=== PATIENT | female | born 1990 | race Caucasian/White ===

== ENCOUNTER 2018-03-22 23:27 | Inpatient (IN) | payer OTHER, SELFPAY ==
[2018-03-23] MEDS: Lactated Ringers 1,000 ML 50 ML IV ×4 (00:03→15:14)
[2018-03-23 00:04] VITALS: BMI 35.9
[2018-03-23 00:29] LABS: Hemoglobin 13.5 g/dl (12.0-15.0); Mean Corp Hgb Conc 35.5 g/gl (32-36); Mean Corpuscular Volume 84.4 fL (81-99); Platelet Count 214 K/mm3 (150-450); RBC Distribution Width CV 13.1 % (11.6-14.6); RBC Distribution Width SD 40.1 fl (35.1-43.9)
[2018-03-23] MEDS: Oxytocin 30 units/NS 500 ml 30 UNITS/500 ML IV.SOLN IV (00:39)
[2018-03-23 00:57] LABS: Scan Indicated on CBC? Y/N NO
[2018-03-23] MEDS: Ondansetron 4 MG/2 ML Vial IV ×2 (04:54→17:13)
[2018-03-23] MEDS: Nalbuphine 10 MG/ML Ampul IV ×2 (05:09→08:11)
[2018-03-23] MEDS: 0.9% Saline Lock 10 ML Syringe IV (06:59)
--- NOTE | 2018-03-23 08:13 | PCM.HP.OB ---
History Date of Admission: 03/23/18 Final JENNIE: 03/22/18 Final JENNIE Source: LMP Gestational age: 40 Weeks and 1 Days History of this : This is a 27 year-old, , at 40.1 weeks gestational age with complaints of SROM at home- not in active labor. pt reports occasional contractions, clear fluid. this was conceived with IUI- no complications during this . Medical History: Medical History (Last Updated 03/23/18 @ 08:15 by Hortensia Hays MD) Hypothyroid E03.9 Allergies Sulfa (Sulfonamide Antibiotics) Allergy (Verified 03/23/18 00:08) Unknown Smoking Status: Never smoker Alcohol: None Number of Fetus(es): 1 Heart Tracin mod juan, +accels, no decelerations at current time- had occasional variable - TOCO Analysis: q2-4min History Past Pregnancies: Past Pregnancies Delivery Date Name GA/Weeks Outcome Route Weight Infant Gender Labor Length Anesthesia Delivery Location Provider FOB Labs: A+, HIV neg, RUb imm, Syphilis neg, HEPB neg, GBS neg Expected Infant Delivery Method: Spontaneous Vaginal Review of Systems Cardiovascular: Denies: Chest Pain Respiratory: Denies: Cough Physical Exam General: Alert, Oriented x3 Abdomen: Soft, Non Tender, Gravid Extremities:: No clubbing, No tenderness/swelling Neurological: Cranial nerves II-XII grossly intact FITTER TYPE BAR AND SEGMENT: Normal external genitalia Estimated gestational size: Appropriate for gestational size Presentation: Cephalic Cervix Dilation (cm): 2.5 Station: -3 Effacement (%): 70 Assessment/Plan This is a 27 year-old, G 1P0 at 40.1 weeks gestational age with SROM at home- not in labor 1) induction with pitocin 2) may have Epidural for pain if requested 3) IUPC placed 4) Monitor VS, TOCO/FHR 5) anticipate
--- NOTE | 2018-03-23 08:18 | HP.PCM_ITS ---
History Date of Admission: 03/23/18 Final JENNIE: 03/22/18 Final JENNIE Source: LMP Gestational age: 40 Weeks and 1 Days History of this : This is a 27 year-old, , at 40.1 weeks gestational age with complaints of SROM at home- not in active labor. pt reports occasional contractions, clear fluid. this was conceived with IUI- no complications during this . Medical History: Medical History (Last Updated 03/23/18 @ 08:15 by Hortensia Hays MD) Hypothyroid E03.9 Allergies Sulfa (Sulfonamide Antibiotics) Allergy (Verified 03/23/18 00:08) Unknown Smoking Status: Never smoker Alcohol: None Number of Fetus(es): 1 Heart Tracin mod juan, +accels, no decelerations at current time- had occasional variable - TOCO Analysis: q2-4min History Past Pregnancies: Past Pregnancies Delivery Date Name GA/Weeks Outcome Route Weight Infant Gender Labor Length Anesthesia Delivery Location Provider FOB Labs: A+, HIV neg, RUb imm, Syphilis neg, HEPB neg, GBS neg Expected Infant Delivery Method: Spontaneous Vaginal Review of Systems Cardiovascular: Denies: Chest Pain Respiratory: Denies: Cough Physical Exam General: Alert, Oriented x3 Abdomen: Soft, Non Tender, Gravid Extremities:: No clubbing, No tenderness/swelling Neurological: Cranial nerves II-XII grossly intact [employer] ACCOUNTING CLERK: Normal external genitalia Estimated gestational size: Appropriate for gestational size Presentation: Cephalic Cervix Dilation (cm): 2.5 Station: -3 Effacement (%): 70 Assessment/Plan This is a 27 year-old, G 1P0 at 40.1 weeks gestational age with SROM at home- not in labor 1) induction with pitocin 2) may have Epidural for pain if requested 3) IUPC placed 4) Monitor VS, TOCO/FHR 5) anticipate
[2018-03-23] MEDS: fentaNYL-bupivacaine (epidural) 100 ML BAG EPIDURAL ×3 (11:03→22:00)
--- NOTE | 2018-03-23 16:32 | PCM.PN.BLA ---
Progress Note pt seen at bedside VE performed- /-1. FHR 160s mod juan + accels, occasional variable. Continue pitocin and monitor FHR/TOCO. anticipate .
[2018-03-23] MEDS: Acetaminophen 500 MG Tablet 1000 MG PO (20:03)
--- NOTE | 2018-03-23 21:19 | PCM.PN.BLA ---
Progress Note pt seen at bedside, doing well. Comfortable with epidrual in place. Pushing - position feels OP, caput noted - +1 station while pushing.
--- NOTE | 2018-03-23 22:56 | PLAC_PTH ---
PATIENT: MEENA BLEVINS LOC: [facility] U#:[id number] AGE/SX: 27/F ROOM: [facility] RE03/22/[address]: Dr. Hortensia Hays, MDDOB: 1990 BED: 1 DIS: 03/25/2018 SPEC #: [id number] RECD: 03/24/18 03:42 STATUS: SAMUEL DANIELLA #: [id number] DARIN: 03/23/18 22:[address]: Hortensia Hays DEPT: SURGICAL PATHOLOGY RECD BY: Torsten Jacobsen ENTERED: 03/25/18 08:37 SP TYPE: PLACENTA OTHR DR: Out of [facility] Doctor Tissues: Placenta, NOS Procedures: Surgery Specimen Level V HEADER OPERATION: Vaginal delivery PRE-OP DIAGNOSIS: Vaginal delivery TISSUE SUBMITTED: Placenta MICROSCOPIC DIAGNOSIS Fuchs placenta (387 gm): Umbilical cord - trivascular with no inflammation. Placental membranes - mild acute chorioamnionitis and deciduitis. Placental disc - increased intraparenchymal fibrin plaques and Aparna-Chip change. AM:lexy 03/26/18 MICROSCOPIC DESCRIPTION Slides are reviewed. GROSS DESCRIPTION SPECIMEN: PLACENTA / CLINICAL INFORMATION: A. Weight: 3.471 kg B. Gestational Age: 40 weeks C. Sex: Male Received is a placenta in multiple pieces, detached umbilical cord and detached piece of membrane. PLACENTAL WEIGHT (POST FIXATION): 387 gm PLACENTAL DIMENSIONS: 17 x 12 x 4 cm. A detached piece of placenta measures 3.5 x 3 x 1.5 cm. PLACENTAL SHAPE: Usual ovoid PLACENTAL WEIGHT FOR GESTATIONAL AGE: Within 10-99th percentile MEMBRANES - Present A. Insertion: Marginal B. Site of rupture from edge: Distance of rupture cannot be assessed. C. Color of membrane: Gupta-donato D. Abnormalities: None UMBILICAL CORD - Present A. Color: Gupta-donato B. Insertion: No obvious site of insertion of umbilical cord is noted on the surface of the placenta. C. Length: The detached segment of umbilical cord measures 41 cm D. Diameter: 1.2 cm E. Number of vessels: Three F. Abnormalities: One end shows an attached membrane considered to be the maternal end of the umbilical cord. PLACENTAL DISC - Present A. Color of surface: Gupta-donato B. surface abnormalities: None C. Maternal cotyledons: Intact with minimal tears D. Attached retro placental clot: No clot E. Cut surface: Dark red and spongy F. Lesions: None G. Separate clot: Also present are a few blood clots weighing in aggregate 16 gm and measuring in aggregate 5 x 5 x 3 cm. The maternal surface is disrupted and cannot be assessed due to fragmented nature of the placenta. A focal ill-defined firm area is noted. SECTIONS SUBMITTED: 1. Membrane roll 2. Cord, maternal end 3. Cord, end 4. Placental disc, and maternal surfaces 5. Placental disc, and maternal surfaces, firm area 6. Placental disc, and maternal surfaces LINCOLN:lexy 03/25/18 TC:2 CPT: 98808
[2018-03-23] MEDS: Oxytocin 30 units/NS 500 ml 30 UNITS/500 ML IV.SOLN 334 UNITS IV (23:10)
--- NOTE | 2018-03-23 23:30 | PCM.OB.VAG ---
Vaginal Delivery Maternal Presentation: Spontaneous Rupture of Membranes Method of Induction: Pitocin Medical Reason for Induction: Premature Rupture of Membranes Amniotic Membrane Rupture Type: Spontaneous at home Amniotic Fluid Description: Clear Final JENNIE: 03/22/18 Gestational age: 40 Weeks and 1 Days Date of Procedure: 03/23/18 Pre-Operative Diagnosis: term gestation, SROM Post-Operative Diagnosis: same, live male born Surgery/ Procedure Performed: Spontaneous Vaginal Delivery Type of Anesthesia: Epidural, Local with 1% lidocaine Description of Procedure: Pt pushing with good maternal effort- heart rate in 60s head at perineum with tight vaginal band- decision made for RML pt was made aware and agreed with decision. after RML made head delivered - gentle downward traction placed and anterior shoulder delivered without difficulty. infant was not vigorous at time of delivery- Nursery team present and cord clamped and cut and handed to nursery team for further intervention. at this time Arterial and venous gases obtained. The RML 2nd degree was repaired in usual fashion. Gentle traction on cord - cord avulsed and manual removal was performed. Placenta was adherent- was able to create plane and remove placenta manually. Ultrasound confirmed endometrial stripe - did not appear to have any retained POC. On manual removal of placenta uterus was very warm- this with need for manual removal, prolonged ROM, tachycardia I will be treating her with ampicillin and Gentamicin for 24hr for possible Chorioamnionitis. Presentation: Vertex Placental Delivery Description: Manual Removal Placenta Disposition: [facility] Cord Vessel Description: 3 Vessels Nuchal Cord Compression: Without compression Cord Gases drawn per routine: ABG, VBG Cord Entanglement: None Drain: Willis to straight drain Estimated Blood Loss: 350 A gender: Male (1 minute): 5 (5 minute): 7 - 10min was 8 Episiotomy Description: Right Mediolateral, Perineal Extension/lac, 2nd degree Laceration: None Medications given after delivery: IV Pitocin Complications: None
[2018-03-23] MEDS: Oxytocin 30 units/NS 500 ml 30 UNITS/500 ML IV.SOLN 167 UNITS IV (23:40)
[2018-03-24] MEDS: oxyCODONE 5 MG Tablet PO (00:21)
[2018-03-24] MEDS: Lactated Ringers 1,000 ML 15 ML IV (00:43)
[2018-03-24 00:55] VITALS: BP 103/49; PULSE 88; RESP 18; TEMP 36.9
[2018-03-24] MEDS: Senna/Docusate Sodium 1 Tablet PO (03:48)
[2018-03-24] MEDS: Naproxen 250 MG Tablet PO ×3 (03:49→20:21)
[2018-03-24 03:55] LABS: Pathology Specimen OB SEE PATHOLOGY REPORT
[2018-03-24 04:00] VITALS: BP 112/86; PULSE 83; RESP 16; TEMP 36.6; O2SAT 98
[2018-03-24] MEDS: Levothyroxine 88 MCG Tablet PO (06:18)
[2018-03-24 06:35] LABS: Hematocrit 35.2 % (37-47); Hemoglobin 12.7 g/dl (12.0-15.0); Mean Corp Hgb Conc 36.1 g/gl (32-36); Mean Corpuscular Hgb 30.8 pg (27.0-32.0); Mean Corpuscular Volume 85.2 fL (81-99); Mean Platelet Vol. 9.8 fl (6.2-12.0); Platelet Count 207 K/mm3 (150-450); RBC Distribution Width CV 12.9 % (11.6-14.6); RBC Distribution Width SD 39.2 fl (35.1-43.9); Red Blood Count 4.13 M/mm3 (4.2-5.4); White Blood Count 20.8 K/mm3 (4.4-11.0)
[2018-03-24 06:37] LABS: Scan Indicated on CBC? Y/N NO
[2018-03-24 08:46] VITALS: BP 111/68; PULSE 80; RESP 16; TEMP 36.5
--- NOTE | 2018-03-24 10:53 | PCM.PN.OB ---
Subjective: pt seen at bedside, doing well. pt reports good pain control, lochia mild. Breast feeding. Voiding w/o difficulty. - Physical Exam General: Alert, Oriented x3 Abdomen: Soft, Non Tender, Non-Distended, - - fundus firm Extremities: No Calf Tenderness Vital Signs Temp Pulse Resp BP Pulse Ox 97.7 F L 80 16 111/68 98 03/24/18 08:46 03/24/18 08:46 03/24/18 08:46 03/24/18 08:46 03/24/18 04:00 Oxygen Delivery Method Room Air Weight: 112.6 kg Body Mass Index (BMI) 35.9 Intake and Output for Last 24 Hours 03/22/18 03/23/18 03/24/18 23:59 23:59 23:59 Intake Total 5278 / 5278 Output Total 2550 / 2550 1900 / 1900 Balance 2728 / 2728 -1900 / -1900 Laboratory Tests Past 24 Hrs 03/24/18 06:15 WBC 20.8 H RBC 4.13 L Hgb 12.7 Hct 35.2 L MCV 85.2 MCH 30.8 MCHC 36.1 H RDW 12.9 RDW Differential 39.2 Plt Count 207 MPV 9.8 Medical Necessity - Tobacco Use Smoking Status: Never smoker Assessment/Plan PPD#1, doing well routine care repeat cbc tomorrow- elevated WBC Continue Ampicillin/Gen x 24hrs- possible Chorioamnionitis pain mgmt
--- NOTE | 2018-03-24 10:57 | DCINST_ITS ---
Discharge Diet: No Restrictions Discharge Activity: Return to Normal Activity, May not drive while taking narcotic pain medications., May Shower May resume sexual activity in: 4-6 weeks Additional Activity Instructions:: Nothing in the vagina for 4-6 weeks. You may return to work/school in 6 weeks. Call your doctor if your incision/area has: Continuous Slow Oozing, Sudden Increased Bleeding, Increased Pain/ Swelling, Increased Redness, Foul Smelling Discharge Additional Instructions: If you experience any of the following, contact your healthcare provider. * Bleeding that soaks a pad every hour for 2 hours * Fever 100.4 or higher * Unrelieved incision or abdominal pain * Swelling, redness, discharge or bleeding from your incision or episiotomy site * Your incision begins to separate * Problems urinating (including inability to urinate or burning while urinating) . * Visual changes * Severe headache * Flu-like symptoms * Pain or redness in one of both of your breasts * Pain, warmth, tenderness or swelling in your legs, especially the calf area * Frequent nausea and vomiting * Symptoms of depression or anxiety If you experience any of the following, call 911 or go to the nearest Emergency Room. * Chest pain * Problems breathing * Seizure activity * Partial or complete paralysis of a body part, slurred speech, weakness or drooping of the face, or a sudden inability to walk or hold your balance Allergies/Adverse Reactions: Allergies Sulfa (Sulfonamide Antibiotics) Allergy (Verified 03/23/18 00:08) Unknown Medications to take at Discharge Levothyroxine 88 mcg PO DAILY 03/23/18 Levothyroxine [Synthroid] 88 mcg PO DAILY@0600 tablet 03/24/18 Naproxen [Naprosyn] 250 - 500 mg PO Q8H PRN PRN #60 tab 03/24/18 The following prescriptions were given: Naproxen [Naprosyn] 250 - 500 mg PO Q8H PRN PRN #60 tab PRN Reason: Mild Pain (-09/08) When: call to make an appointment in 2 weeks and at 6 weeks post Please Follow Up With: Hortensia Hays MD Primary Care Physician: Kristi Lopez,Out of [Primary Care Provider] - Test Results: Test results from this visit will be discussed in further detail at your follow- up appointment, if applicable.
[2018-03-24 12:00] VITALS: BP 103/49; PULSE 84; RESP 18; TEMP 36.9
[2018-03-24 16:00] VITALS: BP 120/73; PULSE 88; RESP 16; TEMP 36.5
[2018-03-24 20:39] VITALS: BP 119/57; PULSE 72; RESP 18; TEMP 36.6; O2SAT 98
[2018-03-25] MEDS: 0.9% Saline Lock 10 ML Syringe IV ×3 (00:17→12:51)
[2018-03-25 02:15] VITALS: BP 109/59; PULSE 70; RESP 16; TEMP 36.9; O2SAT 97
[2018-03-25] MEDS: Naproxen 250 MG Tablet PO ×2 (05:25→15:46)
[2018-03-25] MEDS: Levothyroxine 88 MCG Tablet PO (05:26)
[2018-03-25 06:15] LABS: Absolute Lymphocyte Count 2.06 X10^3/ul (0.83-4.51); Absolute Neutrophil Count 11.2 X10^3/uL (2.0-7.7); Basophil# 0.02 X10^3/uL; Basophil% 0.1 % (0-1); Eosinophil# 0.17 X10^3/uL; Eosinophils% 1.2 % (0-5); Hematocrit 35.2 % (37-47); Hemoglobin 12.3 g/dl (12.0-15.0); Lymphocyte # 2.06 X10^3/ul (4.0); Lymphocyte % 14.5 % (19-41); Mean Corp Hgb Conc 34.9 g/gl (32-36); Mean Corpuscular Hgb 30.2 pg (27.0-32.0); Mean Corpuscular Volume 86.5 fL (81-99); Mean Platelet Vol. 9.9 fl (6.2-12.0); Monocyte# 0.76 X10^3/uL; Monocyte% 5.3 % (0-10); Neutrophil # 11.19 X10^3/uL (2.7-7.7); Neutrophil % 78.5 % (47-70); Platelet Count 202 K/mm3 (150-450); RBC Distribution Width CV 13.1 % (11.6-14.6); RBC Distribution Width SD 40.9 fl (35.1-43.9); Red Blood Count 4.07 M/mm3 (4.2-5.4); White Blood Count 14.3 K/mm3 (4.4-11.0)
[2018-03-25 06:34] LABS: POSITIVE COUNT NO; POSITIVE DIFFERENTIAL NO; POSITIVE MORPHOLOGY NO
[2018-03-25 08:00] VITALS: BP 117/60; PULSE 75; RESP 18; TEMP 36.7
--- NOTE | 2018-03-25 09:06 | PCM.PN.OB ---
Subjective: Doing well per nursing and patient. Denies headache, chest pain, shortness of breath, increased vaginal bleeding, or pain. with some difficulty. Baby admitted to special care for hypoglycemia. Patient tearful but doing well. Planning D/C today and will stay hotel status. - Physical Exam General: Alert, Oriented x3, Cooperative HEENT: Atraumatic Lungs: Clear to auscultation, Normal air movement, No rhonchi, No wheeze Cardiovascular: Regular rate, Regular Rhythm, No murmurs Abdomen: Bowel Sounds Present, - - Fundus firm 2 below U Psych/Mental Status: Normal Affect, Appropriate Vital Signs Temp Pulse Resp BP Pulse Ox 98.4 F 70 16 109/59 L 97 03/25/18 02:15 03/25/18 02:15 03/25/18 02:15 03/25/18 02:15 03/25/18 02:15 Oxygen Delivery Method Room Air Weight: 248 lb 3.848 oz Body Mass Index (BMI) 35.9 Intake and Output for Last 24 Hours 03/23/18 03/24/18 03/25/18 23:59 23:59 23:59 Intake Total 5278 / 5278 Output Total 2550 / 2550 1900 / 1900 Balance 2728 / 2728 -1900 / -1900 Laboratory Tests Past 24 Hrs 03/25/18 05:25 WBC 14.3 H RBC 4.07 L Hgb 12.3 Hct 35.2 L MCV 86.5 MCH 30.2 MCHC 34.9 RDW 13.1 RDW Differential 40.9 Plt Count 202 MPV 9.9 Immature Gran % (Auto) 0.400 Neut % (Auto) 78.5 H Lymph % (Auto) 14.5 L [place] % (Auto) 5.3 Eos % (Auto) 1.2 Baso % (Auto) 0.1 Absolute Neuts (auto) 11.2 H Absolute Lymphs (auto) 2.06 Total Counted Not Reportable Medical Necessity - Tobacco Use Smoking Status: Never smoker Assessment/Plan A:PPD #2 for P: 1) D/C home today and will keep on hotel status if baby remains in special care nursery 2) Follow up in 2 weeks and 6 weeks . 3) D/C antibiotics upon discharge.
[2018-03-25] MEDS: Senna/Docusate Sodium 1 Tablet PO (09:49)
[2018-03-25] MEDS: Acetaminophen 500 MG Tablet 1000 MG PO (09:51)
[2018-03-25 17:21] VITALS: BP 108/60; PULSE 77; RESP 18; TEMP 36.7
--- NOTE | 2018-03-25 17:29 | NURSING ---
Pt discharged to hotel status.
== END 2018-03-25 17:30 | disposition home or self-care (01) | DRG 774 ==
PROVIDERS: Obstetrics & Gynecology; Admitting Provider Obstetrics & Gynecology; Visit Provider Obstetrics & Gynecology
DX: O42.92 Full-term premature rupture of membranes, unspecified as to length of time between rupture and onset of labor (principal); O73.0 Retained placenta without hemorrhage; Z37.0 Single live birth; Z3A.40 40 weeks gestation of pregnancy; N89.5 Stricture and atresia of vagina
CPT/HCPCS: 59025; 59050; 85025; 85027; 86850; 86900; 88307; 99218; J7120; A4216; G0378; J0290; J2405

== ENCOUNTER 2018-04-02 10:25 | Outpatient (CLI) | payer OTHER, SELFPAY | END 2018-04-02 11:30 | disposition home or self-care (01) | LOC: WPOUT 10:28 → WP 10:29 | PROVIDERS: Referring Provider Obstetrics & Gynecology; Visit Provider Obstetrics & Gynecology | DX: R63.3 Feeding difficulties (principal) | CPT/HCPCS: 96152 ==

== ENCOUNTER → 2020-10-02 06:54 | Outpatient (CLI) | payer OTHER, SELFPAY ==
[2020-10-02 07:48] LABS: Estradiol 182.8 pg/mL
[2020-10-02 08:21] LABS: Progesterone Level 49.28 ng/mL (See Comment)
== END ==
DX: Z32.01 Encounter for pregnancy test, result positive (principal)
CPT/HCPCS: 36415; 82670; 84144

== ENCOUNTER → 2020-10-07 06:01 | Outpatient (CLI) | payer OTHER, SELFPAY ==
[2020-10-07 06:41] LABS: hCG Titer Quant., Serum 61 mIU/mL (1-3)
[2020-10-07 07:46] LABS: Progesterone Level 50.18 ng/mL (See Comment)
== END ==
PROVIDERS: PCP Family Medicine
DX: Z32.00 Encounter for pregnancy test, result unknown (principal)
CPT/HCPCS: 36415; 84144; 84702

== ENCOUNTER → 2020-10-09 07:00 | Outpatient (CLI) | payer OTHER, SELFPAY ==
[2020-10-09 08:22] LABS: hCG Titer Quant., Serum 115 mIU/mL (1-3)
[2020-10-09 08:31] LABS: Estradiol 254.6 pg/mL; Thyroid Stim Hormone (TSH) 5.48 uIU/mL (0.358-3.74)
[2020-10-09 13:51] LABS: Progesterone Level 44.27 ng/mL (See Comment)
== END ==
PROVIDERS: PCP Family Medicine
DX: Z32.01 Encounter for pregnancy test, result positive (principal)
CPT/HCPCS: 36415; 82670; 84144; 84443; 84702

== ENCOUNTER → 2020-10-11 07:38 | Outpatient (CLI) | payer OTHER, SELFPAY ==
[2020-10-11 08:28] LABS: hCG Titer Quant., Serum 215 mIU/mL (1-3)
[2020-10-11 09:37] LABS: Progesterone Level 43.97 ng/mL (See Comment)
== END ==
PROVIDERS: PCP Family Medicine
DX: Z32.01 Encounter for pregnancy test, result positive (principal)
CPT/HCPCS: 36415; 84144; 84702

== ENCOUNTER → 2020-10-13 06:19 | Outpatient (CLI) | payer OTHER, SELFPAY ==
[2020-10-13 06:57] LABS: Estradiol 323.5 pg/mL
[2020-10-13 06:59] LABS: hCG Titer Quant., Serum 317 mIU/mL (1-3)
== END ==
PROVIDERS: PCP Family Medicine
DX: Z32.01 Encounter for pregnancy test, result positive (principal)
CPT/HCPCS: 36415; 82670; 84144; 84443; 84702

== ENCOUNTER → 2020-10-15 06:30 | Outpatient (CLI) | payer OTHER, SELFPAY ==
[2020-10-15 07:11] LABS: Estradiol 321.2 pg/mL; Thyroid Stim Hormone (TSH) 3.99 uIU/mL (0.358-3.74)
[2020-10-15 07:13] LABS: hCG Titer Quant., Serum 348 mIU/mL (1-3)
[2020-10-15 09:42] LABS: Progesterone Level 47.12 ng/mL (See Comment)
== END ==
PROVIDERS: PCP Family Medicine
DX: Z32.01 Encounter for pregnancy test, result positive (principal)
CPT/HCPCS: 36415; 82670; 84144; 84443; 84702

== ENCOUNTER → 2020-10-21 07:07 | Outpatient (CLI) | payer OTHER, SELFPAY ==
[2020-10-21 07:57] LABS: hCG Titer Quant., Serum 217 mIU/mL (1-3)
== END ==
PROVIDERS: PCP Family Medicine
DX: O00.90 Unspecified ectopic pregnancy without intrauterine pregnancy (principal); Z3A.00 Weeks of gestation of pregnancy not specified
CPT/HCPCS: 36415; 84702

== ENCOUNTER → 2020-10-26 07:19 | Outpatient (CLI) | payer OTHER, SELFPAY ==
[2020-10-26 08:14] LABS: Hematocrit 41.9 % (37-47); Hemoglobin 13.8 g/dL (12.0-15.0); Mean Corp Hgb Conc 32.9 g/dL (32-36); Mean Corpuscular Hgb 28.7 pg (27.0-32.0); Mean Corpuscular Volume 87.1 fL (81-99); Mean Platelet Vol. 9.1 fl (6.2-12.0); Platelet Count 290 K/mm3 (150-450); RBC Distribution Width CV 12.4 % (11.6-14.6); RBC Distribution Width SD 39.3 fl (35.1-43.9); Red Blood Count 4.81 M/mm3 (4.2-5.4); White Blood Count 6.3 K/mm3 (4.4-11.0)
[2020-10-26 08:29] LABS: hCG Titer Quant., Serum 105 mIU/mL (1-3)
[2020-10-26 08:46] LABS: AST(SGOT) 11 U/L (15-37); Alanine Aminotransfer ALT/SGPT 27 U/L (13-56); Albumin, Serum 3.5 g/dL (3.2-5.0); Alkaline Phosphatase 57 U/L (45-117); Anion Gap 5 (5-15); BUN 15 mg/dL (7-18); BUN/Creat Ratio 17.6 RATIO (10-20); Calcium,Total 8.4 mg/dL (8.5-10.1); Chloride 108 mmol/L (98-107); Creatinine, Serum 0.85 mg/dL (0.55-1.02); EST Glomerular Filtration Rate 83 mL/min (>60); Est Glom Filt Rate - Afr Amer 100 mL/min (>60); Globulin 3.6 g/dL (2.2-4.2); Glucose 109 mg/dL (74-106); Potassium 3.9 mmol/L (3.5-5.1); Protein, Total 7.1 g/dL (6.4-8.2); Sodium Level 139 mmol/L (136-145)
== END ==
PROVIDERS: PCP Family Medicine
DX: O00.90 Unspecified ectopic pregnancy without intrauterine pregnancy (principal); Z3A.00 Weeks of gestation of pregnancy not specified
CPT/HCPCS: 36415; 80053; 84702; 85027

== ENCOUNTER 2020-11-02 07:36 | Outpatient (RCR) | payer OTHER, SELFPAY ==
[2020-11-02 08:11] LABS: hCG Titer Quant., Serum 3 mIU/mL (1-3)
== END 2020-11-02 18:00 | disposition home or self-care (01) ==
LOC: LAB 07:36
PROVIDERS: PCP Family Medicine
DX: O00.90 Unspecified ectopic pregnancy without intrauterine pregnancy (principal)
CPT/HCPCS: 36415; 84702

== ENCOUNTER → 2020-12-07 11:00 | Outpatient (CLI) | payer OTHER, SELFPAY ==
[2020-12-07 11:21] LABS: Hematocrit 40.9 % (37-47); Hemoglobin 14.2 g/dL (12.0-15.0); Mean Corp Hgb Conc 34.7 g/dL (32-36); Mean Corpuscular Volume 83.5 fL (81-99); Mean Platelet Vol. 9.1 fl (6.2-12.0); Platelet Count 247 K/mm3 (150-450); RBC Distribution Width CV 12.1 % (11.6-14.6); White Blood Count 9.3 K/mm3 (4.4-11.0)
[2020-12-07 11:39] LABS: Vitamin D,25 Hydroxy 62.5 ng/mL
[2020-12-07 12:26] LABS: AST(SGOT) 15 U/L (15-37); Alanine Aminotransfer ALT/SGPT 21 U/L (13-56); Albumin, Serum 3.7 g/dL (3.2-5.0); Alkaline Phosphatase 78 U/L (45-117); Anion Gap 8 (5-15); BUN 12 mg/dL (7-18); BUN/Creat Ratio 14.8 RATIO (10-20); Calcium,Total 8.7 mg/dL (8.5-10.1); Chloride 103 mmol/L (98-107); Creatinine, Serum 0.81 mg/dL (0.55-1.02); EST Glomerular Filtration Rate 87 mL/min (>60); Est Glom Filt Rate - Afr Amer 105 mL/min (>60); Globulin 3.7 g/dL (2.2-4.2); Glucose 94 mg/dL (74-106); Potassium 4.1 mmol/L (3.5-5.1); Prolactin 9.2 ng/mL; Protein, Total 7.4 g/dL (6.4-8.2); Sodium Level 137 mmol/L (136-145); Thyroid Stim Hormone (TSH) 0.02 uIU/mL (0.358-3.74)
[2020-12-10 11:10] LABS: Anti-Mullerian Hormone,Serum 4.17 ng/mL (.)
== END ==
PROVIDERS: PCP Family Medicine
DX: E28.9 Ovarian dysfunction, unspecified (principal)
CPT/HCPCS: 36415; 80053; 82306; 83516; 84146; 84443; 85027

== ENCOUNTER → 2020-12-20 08:28 | Outpatient (CLI) | payer OTHER, SELFPAY ==
[2020-12-20 10:31] LABS: Insulin 10.5 mU/L (2.6-37.6)
[2020-12-20 10:39] LABS: Glucose 89 mg/dL (74-106)
[2020-12-20 11:04] LABS: Hemoglobin A1c 4.4 % (3.8-5.6)
[2020-12-24 20:08] LABS: Testosterone, Free 0.14 ng/dL (0.10-0.85); Testosterone, Total 6 ng/dL (8-60)
[2020-12-29 16:03] LABS: 17-Hydroxyprogesterone 181 ng/dL (.)
== END ==
PROVIDERS: PCP Family Medicine
DX: Z31.49 Encounter for other procreative investigation and testing (principal)
CPT/HCPCS: 36415; 82627; 82947; 83036; 83498; 83525; 84402; 84403; 82626

== ENCOUNTER → 2021-01-08 07:08 | Outpatient (CLI) | payer OTHER, SELFPAY ==
[2021-01-08 08:04] LABS: Luteinizing Hormone 53.5 mIU/mL
== END ==
PROVIDERS: PCP Family Medicine
DX: E28.9 Ovarian dysfunction, unspecified (principal)
CPT/HCPCS: 36415; 82670; 83002; 84144

== ENCOUNTER → 2021-02-17 07:38 | Outpatient (CLI) | payer OTHER, SELFPAY ==
[2021-02-17 08:23] LABS: Progesterone Level 52.17 ng/mL (See Comment)
[2021-02-17 08:24] LABS: hCG Titer Quant., Serum 78 mIU/mL (1-3)
== END ==
PROVIDERS: PCP Family Medicine; Referring Provider Obstetrics & Gynecology Reproductive Endocrinology; Visit Provider Obstetrics & Gynecology Reproductive Endocrinology
DX: Z32.00 Encounter for pregnancy test, result unknown (principal)
CPT/HCPCS: 36415; 84144; 84702

== ENCOUNTER → 2021-02-19 07:02 | Outpatient (CLI) | payer OTHER, SELFPAY ==
[2021-02-19 07:53] LABS: hCG Titer Quant., Serum 143 mIU/mL (1-3)
[2021-02-19 08:24] LABS: Progesterone Level 44.57 ng/mL (See Comment)
[2021-02-19 08:51] LABS: Estradiol 182.3 pg/mL; Thyroid Stim Hormone (TSH) 2.14 uIU/mL (0.358-3.74)
== END ==
PROVIDERS: PCP Family Medicine
DX: Z32.01 Encounter for pregnancy test, result positive (principal)
CPT/HCPCS: 36415; 82670; 84144; 84443; 84702

== ENCOUNTER → 2021-02-21 07:25 | Outpatient (CLI) | payer OTHER, SELFPAY ==
[2021-02-21 08:22] LABS: Estradiol 236.8 pg/mL; Thyroid Stim Hormone (TSH) 1.08 uIU/mL (0.358-3.74)
[2021-02-21 08:28] LABS: hCG Titer Quant., Serum 303 mIU/mL (1-3)
[2021-02-21 08:39] LABS: Progesterone Level 46.97 ng/mL (See Comment)
== END ==
PROVIDERS: PCP Family Medicine; Referring Provider Obstetrics & Gynecology Reproductive Endocrinology; Visit Provider Obstetrics & Gynecology Reproductive Endocrinology
DX: O09.00 Supervision of pregnancy with history of infertility, unspecified trimester (principal); Z3A.00 Weeks of gestation of pregnancy not specified
CPT/HCPCS: 36415; 82670; 84144; 84443; 84702

== ENCOUNTER → 2021-05-21 07:22 | Outpatient (CLI) | payer OTHER, SELFPAY ==
[2021-05-21 08:19] LABS: Hematocrit 40.9 % (37-47); Hemoglobin 14.1 g/dL (12.0-15.0); Mean Corp Hgb Conc 34.5 g/dL (32-36); Mean Corpuscular Hgb 29.2 pg (27.0-32.0); Mean Corpuscular Volume 84.7 fL (81-99); Mean Platelet Vol. 9.3 fl (6.2-12.0); Platelet Count 285 K/mm3 (150-450); RBC Distribution Width CV 11.4 % (11.6-14.6); RBC Distribution Width SD 34.9 fl (35.1-43.9); Red Blood Count 4.83 M/mm3 (4.2-5.4); White Blood Count 6.3 K/mm3 (4.4-11.0)
[2021-05-21 08:54] LABS: Hemoglobin A1c 4.4 % (3.8-5.6)
[2021-05-21 08:56] LABS: hCG Titer Quant., Serum 2 mIU/mL (1-3)
[2021-05-21 08:57] LABS: ALB/GLOB Ratio 0.9 RATIO (0.9-2.4); AST(SGOT) 11 U/L (15-37); Alanine Aminotransfer ALT/SGPT 15 U/L (13-56); Albumin, Serum 3.6 g/dL (3.2-5.0); Alkaline Phosphatase 65 U/L (45-117); Anion Gap 4 (5-15); BUN 8 mg/dL (7-18); BUN/Creat Ratio 10.6 RATIO (10-20); Calcium,Total 8.4 mg/dL (8.5-10.1); Chloride 109 mmol/L (98-107); Cholesterol 175 mg/dL (200); Creatinine, Serum 0.75 mg/dL (0.55-1.02); EST Glomerular Filtration Rate 95 mL/min (>60); Est Glom Filt Rate - Afr Amer 115 mL/min (>60); Follicle Stimulating Hormone 5.7 mIU/mL; Globulin 3.8 g/dL (2.2-4.2); Glucose 94 mg/dL (74-106); High Density Lipoprotein 46 mg/dL; Luteinizing Hormone 5.2 mIU/mL; Potassium 4.1 mmol/L (3.5-5.1); Prolactin 11.6 ng/mL; Protein, Total 7.4 g/dL (6.4-8.2); Sodium Level 138 mmol/L (136-145); Triglycerides 125 mg/dL; Very Low Density Lipoprotein 25 mg/dL (5-40)
[2021-05-23 09:04] LABS: Insulin 10.5 mU/L (2.6-37.6)
[2021-05-28 16:08] LABS: Testosterone, % Free 1.42 % (0.50-2.80); Testosterone, Free 0.14 ng/dL (0.10-0.85); Testosterone, Total 10 ng/dL (8-60)
[2021-05-29 08:01] LABS: DHEA Sulfate 96.4 ug/dL (84.8-378.0)
== END ==
PROVIDERS: PCP Family Medicine; Visit Provider Obstetrics & Gynecology Reproductive Endocrinology
DX: Z31.41 Encounter for fertility testing (principal)
CPT/HCPCS: 36415; 80053; 80061; 82306; 82627; 83001; 83002; 83036; 83516; 83525; 84146; 84402; 84403; 84702; 85027; 82626

== ENCOUNTER 2022-10-20 16:10 | Outpatient (CLI) | payer OTHER, SELFPAY ==
[2022-10-20 16:26] VITALS: PULSE 77; O2SAT 99
[2022-10-20 16:31] VITALS: PULSE 78; O2SAT 99
[2022-10-20 16:35] VITALS: BP 130/70; PULSE 80
[2022-10-20 16:36] VITALS: PULSE 83; PULSE 85; TEMP 36.8; O2SAT 98; O2SAT 99
[2022-10-20 16:41] VITALS: PULSE 82; O2SAT 99
[2022-10-20 16:46] VITALS: BMI 37.5
--- NOTE | 2022-12-04 08:14 | OB.TRI.NOTE ---
[facility] - General General Date of Service: 10/20/22 Chief Complaint: Decreased movement. HPI Narrative MEENA BLEVINS, is a 32 F who presents for decreased movement. PFSH PFS Medical History (Updated 12/04/22 @ 08:21 by Joanne Lima CNM) Anxiety Depression anomaly Hypothyroid Infertility Laceration, obstetrical, second degree Velamentous insertion of umbilical cord Home Medications Fish Oil 1 tab PO.IVFORM DAILY supplement 10/20/22 [History Last Taken 10/29/22 21:30 1 tab] 1 tab PO.IVFORM DAILY 10/20/22 [History Last Taken 10/29/22 21:30 1 tab] Synthroid 175 mg PO.IVFORM DAILY hypothyroid 10/20/22 [History Last Taken 10/29/22 07:30 175 mg] Zoloft 100 mg PO.IVFORM DAILY depression 10/20/22 [History Last Taken 10/29/22 21:30 100 mg] Allergy/AdvReac Type Severity Reaction Status Date / Time Sulfa (Sulfonamide Allergy Unknown Verified 10/30/22 09:52 Antibiotics) Surgical History (Updated 03/23/18 @ 08:[address] Hortensia Hays MD) [place] teeth extracted Social History Smoking Status: Never smoker History Elective abortions Hx Para 1 Spontaneous abortions Hx # Term Pregnancies Ectopic pregnancies Hx # Pregnancies Multiple births # of living children ROS Eyes Eyes: Denies blurry vision Cardiovascular Cardiovascular: Reports none; Denies chest pain at rest, chest pain with activity or dizziness Respiratory/Chest Respiratory/Chest: Denies cough or dyspnea Gastrointestinal Gastrointestinal: Reports none and other; Denies diarrhea or vomiting Genitourinary Genitourinary: Denies dysuria Musculoskeletal Musculoskeletal: Reports none Integumentary Integumentary: Reports none; Denies rash Neurologic Neurologic: Denies dizziness, headache(s) or other visual disturbances Psychiatric Psychiatric: Reports none Physical Exam Const alert and no apparent distress General Appearance: cooperative Orientation / Consciousness: awake Exam Limitations: no limitations HEENT normocephalic Eyes General Eye: normal appearance of both eyes Neck full ROM Chest inspection of chest normal Resp normal respiratory effort and normal air movement Effort and Inspection: symmetric chest movement Auscultation: clear to auscultation bilaterally Cardio regular rate GI soft to palpation, non-tender and non-distended Inspection: and other Back/Spine normal ROM Extremity full ROM, normal capillary refill and no calf tenderness Skin no rashes or lesions noted Neuro oriented x3 and CN's II-XII intact bilaterally Psych mental status grossly normal NST FHR Rate Baby A Baseline: 115 Variability:: Moderate Accelerations:: 15 x 15 Decelerations:: None NST Reactive:: Yes FHR Category:: Category I Uterine Activity:: None Assessment & Plan (1) Decreased movement: (2) NST (non-stress test) reactive on surveillance: (3) 37 weeks gestation of : PLAN: Plan NST reactive Patient has felt movement D/C home with follow up in office
== END 2022-10-20 17:05 | disposition home or self-care (01) ==
LOC: WPOUT 16:18 → WP 16:18
PROVIDERS: PCP Family Medicine; Referring Provider Advanced Practice Midwife; Visit Provider Advanced Practice Midwife
DX: O36.8130 Decreased fetal movements, third trimester, not applicable or unspecified (principal); Z3A.37 37 weeks gestation of pregnancy; O99.283 Endocrine, nutritional and metabolic diseases complicating pregnancy, third trimester; E03.9 Hypothyroidism, unspecified; O99.343 Other mental disorders complicating pregnancy, third trimester; F32.A Depression, unspecified; Z79.899 Other long term (current) drug therapy
CPT/HCPCS: 59025; 59050

== ENCOUNTER 2022-10-30 07:20 | Inpatient (IN) | payer OTHER, SELFPAY ==
[2022-10-30] VITALS (150 sets, daily range): BP systolic 65–129; BP diastolic 31–82; PULSE 56–88; RESP 16–20; TEMP 35.8–36.9; O2SAT 70–100; BMI 38.2
[2022-10-30 07:02] LABS: ROM Internal Control Test YES-OK TO RESULT pt. (Internal QC)
[2022-10-30 07:03] LABS: ROM Patient Test POSITIVE (Negative)
[2022-10-30] MEDS: Lactated Ringers 1,000 ML 150 ML IV (08:10)
[2022-10-30 08:24] LABS: Absolute Lymphocyte Count 2.12 X10^3/uL (0.83-4.51); Absolute Neutrophil Count 11.2 X10^3/uL (2.0-7.7); Basophil# 0.05 X10^3/uL; Basophil% 0.4 % (0-1); Eosinophil# 0.09 X10^3/uL; Eosinophils% 0.6 % (0-5); Hematocrit 39.3 % (37-47); Hemoglobin 13.7 g/dL (12.0-15.0); Lymphocyte # 2.12 X10^3/ul (0.83-4.51); Mean Corp Hgb Conc 34.9 g/dL (32-36); Mean Corpuscular Hgb 29.2 pg (27.0-32.0); Mean Corpuscular Volume 83.8 fL (81-99); Mean Platelet Vol. 9.9 fl (6.2-12.0); Monocyte# 0.65 X10^3/uL; Monocyte% 4.6 % (0-10); NRBC Flagged by Analyzer 0 % (0-5); Neutrophil # 11.16 X10^3/uL (2.7-7.7); Neutrophil % 78.8 % (47-70); Platelet Count 257 K/mm3 (150-450); RBC Distribution Width CV 13.3 % (11.6-14.6); RBC Distribution Width SD 40.6 fl (35.1-43.9); Red Blood Count 4.69 M/mm3 (4.2-5.4); White Blood Count 14.2 K/mm3 (4.4-11.0)
[2022-10-30 09:13] LABS: Syphilis Antibodies Non-reactive
[2022-10-30] MEDS: Acetaminophen 500 MG Tablet 1000 MG PO (10:30)
[2022-10-30] MEDS: Sodium Citrate/Citric Acid 30 ML UDC PO (10:31)
[2022-10-30] MEDS: Cefazolin 2 GM in 0.9% Normal Saline 100 ML IV (10:31)
[2022-10-30] MEDS: Lactated Ringers 1,000 ML 999 ML IV (10:45)
--- NOTE | 2022-10-30 11:15 | PCM.HP.OB ---
HPI - General General Date of Admission: 10/30/22 Date of Service: 10/30/22 HPI Narrative MEENA BLEVINS, is a 32 F @ 38.5 weeks who presents for SROM pt was scheduled for CS at 39 weeks BREE[place]. pt was already in room and sitting for spinal- pt did not feel that baby had flipped to vertex. Decision to perform ultrasound after spinal placed- which then revealed Vertex presentation. VE; 2-3/60-70/-3 after AROM of forebag performed. Maternal Data Information Final JENNIE: 11/08/22 Final JENNIE Source: [place] <20 weeks Gestational age: 38.5 wks [facility] Medical History (Updated 10/30/22 @ 11:[address] Hortensia Hays MD) Anxiety Depression anomaly Hypothyroid Infertility Velamentous insertion of umbilical cord Home Medications Aspir-81 81 mg PO.IVFORM DAILY 10/20/22 [History Last Taken 10/29/22 07:30 81 mg] Fish Oil 1 tab PO.IVFORM DAILY supplement 10/20/22 [History Last Taken 10/29/22 21:30 1 tab] 1 tab PO.IVFORM DAILY 10/20/22 [History Last Taken 10/29/22 21:30 1 tab] Synthroid 175 mg PO.IVFORM DAILY hypothyroid 10/20/22 [History Last Taken 10/29/22 07:30 175 mg] Zoloft 100 mg PO.IVFORM DAILY depression 10/20/22 [History Last Taken 10/29/22 21:30 100 mg] folic acid 1 tab PO.IVFORM DAILY supplement 10/20/22 [History Last Taken 10/29/22 21:30 1 tab] Allergy/AdvReac Type Severity Reaction Status Date / Time Sulfa (Sulfonamide Allergy Unknown Verified 10/30/22 09:52 Antibiotics) Surgical History (Updated 03/23/18 @ 08:[address] Hortensia Hays MD) [place] teeth extracted Social History Smoking Status: Never smoker History Elective abortions Hx Para 1 Spontaneous abortions Hx # Term Pregnancies Ectopic pregnancies Hx # Pregnancies Multiple births # of living children Vital Signs Vital Signs Vital Signs: 10/30/22 06:32 10/30/22 06:32 10/30/22 06:34 Temperature Temperature Source Temporal Pulse Rate 81 Respiratory Rate Blood Pressure 124/76 H Blood Pressure Mean BP Systolic 124 BP Diastolic 76 Blood Pressure Source Blood Pressure Position Blood Pressure Location Pulse Ox Oxygen Delivery Method 10/30/22 06:34 10/30/22 08:31 10/30/22 08:31 Temperature 97.4 F L Temperature Source Pulse Rate 82 Respiratory Rate Blood Pressure 112/61 Blood Pressure Mean BP Systolic 112 BP Diastolic 61 Blood Pressure Source Blood Pressure Position Blood Pressure Location Pulse Ox Oxygen Delivery Method 10/30/22 08:31 10/30/22 08:31 10/30/22 10:12 Temperature Temperature Source Pulse Rate 88 Respiratory Rate Blood Pressure 117/72 Blood Pressure Mean BP Systolic 117 BP Diastolic 72 Blood Pressure Source Blood Pressure Position Blood Pressure Location Pulse Ox 99 Oxygen Delivery Method 10/30/22 10:12 10/30/22 10:13 Temperature 97.7 F L Temperature Source Temporal Pulse Rate 86 86 Respiratory Rate 18 Blood Pressure 117/72 Blood Pressure Mean 87 BP Systolic BP Diastolic Blood Pressure Source Monitor Blood Pressure Position Semi-Fowlers Blood Pressure Location Left Arm Pulse Ox 99 Oxygen Delivery Method Room Air Weight Weight: 117.6 kg Body Mass Index (BMI) 38.2 Physical Exam Narrative Vertex on limited Bedside ultrasound. Const alert and oriented x3 Labs Labs Labs: Blood Type A POSITIVE Antibody Screen NEGATIVE Hct 39.3 % (37-47) Hgb 13.7 g/dL (12.0-15.0) Syphilis Total Ab Non-reactive Assessment & Plan (1) Unstable lie: (2) 38 weeks gestation of : (3) SROM (spontaneous rupture of membranes): (4) LGA (large for gestational age) fetus: PLAN: Plan Admit to L&D [place] FHR/TOCO spinal in place- if needed will convert to epidural later Monitor VS Anticipate GBS negative pitocin for IOL counseled patient on proceeding with primary cs vs IOL - pt would like to proceed with IOL.
[2022-10-30] MEDS: Lactated Ringers 1,000 ML 200 ML IV (12:35)
[2022-10-30] MEDS: Oxytocin 15 Units/NS 250ml 15 UNITS/250 ML IV.SOLN 2 UNITS IV (12:49)
[2022-10-30] MEDS: LACTATED RINGERS 500 ML 999 ML IV (16:05)
[2022-10-30] MEDS: fentaNYL-bupivacaine (epidural) 100 ML BAG EPIDURAL ×2 (17:38→22:45)
--- NOTE | 2022-10-30 19:00 | PCM.PN.BLA ---
Progress Note Patient seen at bedside. Comfortable with epidural anesthesia. Assessment & Plan Assessment/Plan (1) LGA (large for gestational age) fetus: (2) SROM (spontaneous rupture of membranes): (3) 38 weeks gestation of : (4) Velamentous insertion of umbilical cord: (5) Depression: (6) Anxiety: (7) History of abnormality in previous , currently : PLAN: Plan Cat. 2 tracing with occasional variables- overall reassuring Afebrile CE- 4/75/-2 Continue Pitocin IV per policy Anticipate Dr. Lopez and Dr. Foy updated
[2022-10-31] VITALS (53 sets, daily range): BP systolic 82–122; BP diastolic 36–66; PULSE 63–133; RESP 14–16; TEMP 36.1–36.7; O2SAT 86–100
[2022-10-31] MEDS: Lactated Ringers 1,000 ML 200 ML IV (00:21)
[2022-10-31] MEDS: Oxytocin 15 Units/NS 250ml 15 UNITS/250 ML IV.SOLN 83 UNITS IV (05:15)
[2022-10-31] MEDS: Ondansetron 4 MG/2 ML Vial IV (05:45)
[2022-10-31] MEDS: Lactated Ringers 1,000 ML 999 ML IV (05:48)
[2022-10-31 05:56] LABS: Absolute Lymphocyte Count 1.32 X10^3/uL (0.83-4.51); Basophil# 0.04 X10^3/uL; Basophil% 0.2 % (0-1); Eosinophil# 0.03 X10^3/uL; Eosinophils% 0.2 % (0-5); Hematocrit 35.4 % (37-47); Hemoglobin 12.4 g/dL (12.0-15.0); Lymphocyte # 1.32 X10^3/ul (0.83-4.51); Mean Corpuscular Hgb 29.9 pg (27.0-32.0); Mean Corpuscular Volume 85.3 fL (81-99); Mean Platelet Vol. 9.7 fl (6.2-12.0); Monocyte# 0.94 X10^3/uL; Monocyte% 5.7 % (0-10); NRBC Flagged by Analyzer 0 % (0-5); Neutrophil # 14.04 X10^3/uL (2.7-7.7); Neutrophil % 85.5 % (47-70); Platelet Count 222 K/mm3 (150-450); RBC Distribution Width CV 13.6 % (11.6-14.6); RBC Distribution Width SD 42.1 fl (35.1-43.9); Red Blood Count 4.15 M/mm3 (4.2-5.4); White Blood Count 16.4 K/mm3 (4.4-11.0)
[2022-10-31] MEDS: fentaNYL-bupivacaine (epidural) 100 ML BAG EPIDURAL (05:58)
[2022-10-31] MEDS: HYDROmorphone 1 MG/ML Syringe IV (06:03)
[2022-10-31] MEDS: miSOPROStol 200 MCG Tablet 1000 MCG RC (06:08)
[2022-10-31] MEDS: 0.9% Saline Lock 10 ML Syringe IV (06:10)
--- NOTE | 2022-10-31 06:11 | EX.PCM.OBRPT ---
Assessment & Plan (1) (spontaneous vaginal delivery): (2) Laceration, obstetrical, second degree: (3) Blood loss: (4) Velamentous insertion of umbilical cord: COMMENT: current -2022 Maternal Data Information Doctor Who Attended Delivery: Joanne Lima Vaginal Delivery Maternal Presentation Maternal Presentation: Spontaneous Rupture of Membranes Maternal Presentation: that presented with spontaneous rupture of membranes. Patient was origionally scheduled for section due to breech presentation but ultrasound completed upon arrival to unit and vertex position. Type of Induction: Pitocin Operative Information Date of Procedure: 10/31/22 Pre-Operative Diagnosis: Term gestation, Spontaneous rupture of membranes Post-Operative Diagnosis: , live male Surgery / Procedure Performed: Spontaneous Vaginal Delivery Type of Anesthesia: Epidural Drain: Willis to straight drain Estimated Blood Loss: 800 Time of Delivery: 04:40 Findings Description of Procedure: Called to room for delivery. With minimal maternal effort, head delivered in direct OP position followed immediately by remainder of body without traction. Vigorous male placed on maternal abdomen and attended to by nursing staff. Pitocin IV started for active management of the third stage of labor. 3 vessel cord clamped and cut by FOB after delay. During gentle cord traction, cord avulsed. Dr. Lopez called to room for manual removal of placenta. Brief ultrasound completed, bright endometrial stripe visualized and no products present. Cytotec 1000 mcg CA given. Second degree laceration repaired in usual fashion using 3-0 Vicryl Rapid. Hemostasis obtained. EBL 800 cc. APGARS 8/9. Will give Ancef 2 GM IV x 1 dose. Repeat CBC today. Presentation: ROP (Direct OP) Amniotic Membrane Rupture Type: Spontaneous Time of Membrane Rupture: 0200 Amniotic Fluid Description: Clear Placental Delivery Description: Manual Removal Placenta Disposition: [facility] Specimen(s) Removed: Velamentous insertion of cord, Avulsion Cord Vessel Description: 3 Vessels Cord Entanglement: None A Gender: Male (1 minute): 8 (5 minute): 9 Delayed Cord Clamping: Yes Post Vaginal Delivery Medications Given After Delivery: IV Pitocin and - (Cytotec 1000 mcg) Episiotomy Description: None Laceration: 2nd degree Complication Complications: None
[2022-10-31] MEDS: Cefazolin 2 GM in 0.9% Normal Saline 100 ML IV (06:13)
[2022-10-31] MEDS: Benzocaine/Lanolin/Aloe Vera 1 SPRAY EACH TOPICAL (09:58)
[2022-10-31] MEDS: Naproxen 500 MG Tablet PO ×2 (09:58→19:44)
[2022-10-31] MEDS: Levothyroxine 175 MCG Tablet PO (11:01)
[2022-10-31] MEDS: Prenatal Vits Tablet 1 TABLET PO (12:09)
[2022-10-31 12:24] LABS: Hematocrit 30.8 % (37-47); Hemoglobin 10.6 g/dL (12.0-15.0); Mean Corp Hgb Conc 34.4 g/dL (32-36); Mean Corpuscular Volume 84.4 fL (81-99); Mean Platelet Vol. 9.6 fl (6.2-12.0); Platelet Count 233 K/mm3 (150-450); RBC Distribution Width CV 13.4 % (11.6-14.6); RBC Distribution Width SD 41.2 fl (35.1-43.9); Red Blood Count 3.65 M/mm3 (4.2-5.4); White Blood Count 21.2 K/mm3 (4.4-11.0)
[2022-10-31] MEDS: Acetaminophen 500 MG Tablet 1000 MG PO (16:24)
[2022-10-31] MEDS: Senna/Docusate Sodium 1 Tablet PO (16:37)
[2022-10-31] MEDS: Sertraline 100 MG Tablet PO (23:17)
[2022-11-01 04:45] VITALS: BP 129/40; PULSE 80; RESP 15; TEMP 36.4; O2SAT 98
[2022-11-01] MEDS: Acetaminophen 500 MG Tablet 1000 MG PO (05:07)
[2022-11-01 05:08] LABS: Absolute Lymphocyte Count 2.06 X10^3/uL (0.83-4.51); Absolute Neutrophil Count 9.9 X10^3/uL (2.0-7.7); Basophil# 0.03 X10^3/uL; Basophil% 0.2 % (0-1); Eosinophil# 0.13 X10^3/uL; Hematocrit 29.4 % (37-47); Lymphocyte # 2.06 X10^3/ul (0.83-4.51); Lymphocyte % 16.1 % (19-41); Mean Corpuscular Hgb 29.2 pg (27.0-32.0); Mean Platelet Vol. 9.8 fl (6.2-12.0); Monocyte# 0.66 X10^3/uL; Monocyte% 5.1 % (0-10); NRBC Flagged by Analyzer 0 % (0-5); Neutrophil # 9.88 X10^3/uL (2.7-7.7); Neutrophil % 77.1 % (47-70); Platelet Count 183 K/mm3 (150-450); RBC Distribution Width CV 13.6 % (11.6-14.6); Red Blood Count 3.42 M/mm3 (4.2-5.4); White Blood Count 12.8 K/mm3 (4.4-11.0)
[2022-11-01] MEDS: Levothyroxine 175 MCG Tablet PO (05:11)
[2022-11-01 07:49] VITALS: BP 114/63; PULSE 81; RESP 17; TEMP 36.3
[2022-11-01] MEDS: Naproxen 500 MG Tablet PO (07:59)
--- NOTE | 2022-11-01 08:48 | PN.OBGYN_ITS ---
Subjective Subjective Pain well controlled. Average lochia. Bottom is a little sore. Ambulating and urinating without difficulty. Objective Data Objective Data Vital Signs: Vital Signs Temp Pulse Resp BP Pulse Ox O2 Del Method 97.4 F L 81 17 114/63 98 Room Air 11/01/22 07:49 11/01/22 07:49 11/01/22 07:49 11/01/22 07:49 11/01/22 04:45 11/01/22 07:49 Oxygen Delivery Method Room Air Weight: 117.6 kg Body Mass Index (BMI) 38.2 Intake & Output: Intake and Output for Last 24 Hours 10/30/22 10/31/22 11/01/22 23:59 23:59 23:59 Intake Total 4198.23 / 4198.23 2507.77 / 2507.77 Output Total 350 / 350 2450 / 2450 Balance 3848.23 / 3848.23 57.77 / 57.77 Lab / Micro Data Result Diagrams: 11/01/22 04:40 Labs: Laboratory Results - last 24 hr 10/31/22 12:10: WBC 21.2 H, RBC 3.65 L, Hgb 10.6 L, Hct 30.8 L, MCV 84.4, MCH 29.0, MCHC 34.4, RDW Std Deviation 41.2, RDW Coeff of Jolynn 13.4, Plt Count 233, MPV 9.6 11/01/22 04:40: WBC 12.8 H, RBC 3.42 L, Hgb 10.0 L, Hct 29.4 L, MCV 86.0, MCH 29.2, MCHC 34.0, RDW Std Deviation 42.0, RDW Coeff of Jolynn 13.6, Plt Count 183, MPV 9.8, Immature Gran % (Auto) 0.500, Neut % (Auto) 77.1 H, Lymph % (Auto) 16.1 L, [place] % (Auto) 5.1, Eos % (Auto) 1.0, Baso % (Auto) 0.2, Absolute Neuts (auto) 9.9 H, Absolute Lymphs (auto) 2.06, Nucleated RBC % 0 Physical Exam Const alert and no apparent distress Narrative: Fundus firm, below umbilicus. Assessment & Plan (1) Laceration, obstetrical, second degree: (2) (spontaneous vaginal delivery): PLAN: Plan day #1 status post vaginal delivery. Manual removal of retained placenta. Patient received a dose of antibiotics postop. Mild acute blood loss anemia appropriate for blood loss during the procedure. Patient is tolerating this well. is breast-feeding and doing well. Patient was discharged home with routine instructions and prescription.
--- NOTE | 2022-11-01 09:53 | CASEMGMT ---
Social Work Assessment Labor and Delivery Unit Date/Time of referral: 10/31/22 11:45 and 11/01/22 8:30 Referred by: Enedina Walden in note and verbal referral by nursing Date/Time of intervention: 11/01/22 at 9:35am Reason for referral: Anxiety and depression, on Zoloft History obtained from: HERNESTO Household Composition: MOB and FOThanh, Julius who is 4.5 and now baby Gavin. MOB and FOB have been together 10-11 years, 9 years Parent/Guardian Status: MOB and FOB are guardians of both children. Neither parent has any other children. Medical History: MOB--depression and anxiety, hypothyroid, infertility. Baby: Gavin Mayo, born 10/31/[birth year] at 4:40am, 3680 grams, Apgars 8 and 9 at 1 and 5 minutes, sacral dimple. Residential Program Director: Dr. Tee Educational history: HERNESTO has two Master's degrees, working on Doctorate. LIBBY has a master's degree Financial Status: No concerns. 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 HERNESTO plans to return to work in January. Infant supplies: They have all needed supplies including car seat, bassinet, crib, clothing, diapers, wipes, access to formula and bottles if needed Childcare/Caregivers: Julius goes to day care, and will start kindergarten in the fall. He will attend camp in the summer. They also have a nanny for the care of the children. The baby will also go to day care. Transportation: They have two vehicles Programs/Agencies involved: None Children's Services/Legal issues: None Behavioral Health issues: Substance abuse: None for MOB or FOB. Safety concerns: No safety concerns as per HERNESTO. Mental Health: HERNESTO does confirm she has anxiety, not so much depression. She explains she has always been an anxious person, and doing IVF, having loss, having a stressful job all adds to this. She is on Zoloft and does find it helpful. HERNESTO has done counseling in the past, is not in counseling at present. Overall, she feels as this time she is managing well with her anxiety. She explained that at this time, being home, it should be much less stressful. Also, she is not having the daily worry of making it through the . HERNESTO states she is a very type A person, and likes to know what's next. She states that with IVF this was difficult. Family/Social stressors: MOB states is working on her doctorate which does cause some stress. Support Systems: HERNESTO's aunt, who is watching Miles(first child) while they are here, her parents, who are in [place]. Also FOThanh's parents are supportive. They live in [place] but are flying in today to help for the next week. Depression and Anxiety/Shaken baby/Safe Sleeping/Help Me Grow/Mental Health Resources. SW gave MOB information on all of these topics and reviewed them with her. SW reviewed in particular the signs of depression and anxiety. SW suggested if she is having any increased symptoms to speak w/her physician about a possible medication adjustment. SW also suggested if she is having a difficult time w/depression and anxiety to consider counseling again. MOB states understanding. Assessment: MOB very forthcoming, answered all questions appropriately and fully. FOB returned to room as SW reviewing resources, he also seems appropriate. SW did not observe MOB or FOB interacting with the [facility]. Plan: Baby to go home w/MOB and FOB today. No further social service needs requested or indicated. SUNDAY Hernandez
[2022-11-01] MEDS: Prenatal Vits Tablet 1 TABLET PO (12:18)
[2022-11-01 14:07] VITALS: BP 118/68; PULSE 83; RESP 16; TEMP 36.2
== END 2022-11-01 14:25 | disposition home or self-care (01) | DRG 806 ==
LOC: WPOUT 07:22 → WP 07:22
PROVIDERS: Advanced Practice Midwife; Admitting Provider Obstetrics & Gynecology; PCP Family Medicine; Referring Provider Obstetrics & Gynecology; Visit Provider Advanced Practice Midwife
DX: O43.123 Velamentous insertion of umbilical cord, third trimester (principal); Z37.0 Single live birth; D62 Acute posthemorrhagic anemia; F41.9 Anxiety disorder, unspecified; O99.344 Other mental disorders complicating childbirth; O70.1 Second degree perineal laceration during delivery; O32.1XX0 Maternal care for breech presentation, not applicable or unspecified; O36.63X0 Maternal care for excessive fetal growth, third trimester, not applicable or unspecified; Z3A.38 38 weeks gestation of pregnancy; Z79.82 Long term (current) use of aspirin; O99.03 Anemia complicating the puerperium
CPT/HCPCS: 59025; 59050; 76815; 84112; 85025; 85027; 86780; 86850; 86900; 86901; 86920; 99221; J7120; A4216; G0378; J2405